=== PATIENT | male | born 1960 | race Caucasian/White ===

== ENCOUNTER 2022-12-10 11:35 | Emergency (ER) | payer BC ==
[~2022-12-10] VITALS: Ht 172.7 cm; Wt 65.8 kg
[2022-12-10] MEDS ORDERED: NEOM10DR11 LEFT EAR (11:59)
[2022-12-10] MEDS ORDERED: SULF1TAB48 PO (11:59)
--- NOTE | 2022-12-10 12:04 | NUR ---
PT WAS EVALUATED BY DR ENRIQUZE. PT WAS D/C'd TO HOME. D/C INSTRUCTIONS GIVEN TO THE PT BY DR ENRIQUEZ.
[2022-12-10 12:05] VITALS: BP 135/78
== END 2022-12-10 12:06 | disposition home or self-care (01) ==
LOC: ER 11:35
DX: H60.92 Unspecified otitis externa, left ear (principal); L03.012 Cellulitis of left finger; F17.200 Nicotine dependence, unspecified, uncomplicated
CPT/HCPCS: A4663

== ENCOUNTER 2022-12-12 10:19 | Emergency (ER) | payer BC ==
[~2022-12-12] VITALS: Ht 172.7 cm; Wt 65.8 kg
[~2022-12-12 10:19] MED LIST: NEOM10DR11 LEFT EAR; SULF1TAB48 PO
[2022-12-12] MEDS ORDERED: CLIN300C12 PO (10:38)
[2022-12-12] MEDS ORDERED: CLINDAMYCIN HCL 300 MG CAPSULE ONE (10:41)
[2022-12-12] MEDS ORDERED: CLINDAMYCIN HCL 150 MG CAPSULE PO ONE (10:45)
--- NOTE | 2022-12-12 11:21 | NUR ---
PT WAS EVALUATED BY DR MENDOZA. PT WAS D/C'd TO HOME. D/C INSTRUCTIONS GIVEN TO THE PT BY DR MENDOZA.
[2022-12-12 11:23] VITALS: BP 136/81
== END 2022-12-12 11:24 | disposition home or self-care (01) ==
LOC: ER 10:19
DX: L03.012 Cellulitis of left finger (principal); F17.200 Nicotine dependence, unspecified, uncomplicated; H60.92 Unspecified otitis externa, left ear
CPT/HCPCS: A4663

== ENCOUNTER 2024-05-16 06:56 | Emergency (ER) | payer BC ==
[~2024-05-16] VITALS: Ht 170.2 cm; Wt 63.5 kg
[~2024-05-16 06:56] MED LIST changes: +CLIN300C12 PO
[2024-05-16 07:47] LABS: BASOPHILS # (AUTO) 0.1 K/UL (0.0-0.2); BASOPHILS % (AUTO) 0.8 % (0.0-2.0); EOSINOPHILS # (AUTO) 0.1 K/uL (0.0-0.7); HEMATOCRIT 42.9 % (36.7-47.1); HEMOGLOBIN 14.6 g/dL (12.5-16.3); LYMPHOCYTES # (AUTO) 1.4 K/uL (0.8-4.8); LYMPHOCYTES % (AUTO) 17.8 % (20.5-51.5); MEAN CORPUSCULAR HGB CONC 34 g/dL (32.5-36.3); MEAN CORPUSCULAR VOLUME 93.8 fL (73.0-96.2); MONOCYTES # (AUTO) 0.5 K/uL (0.1-1.30); NEUTROPHILS % (AUTO) 74.4 % (38.5-71.5); PLATELET COUNT (AUTO) 239 K/uL (152-348); RED BLOOD CELL COUNT(AUTO) 4.57 MIL/uL (4.06-5.63); RED CELL DISTRIBUTION WIDTH 13.1 % (12.1-16.2)
[2024-05-16 07:51] LABS: DIFFERENTIAL COMMENT 1
[2024-05-16 07:54] LABS: CALCIUM 9.1 mg/dL (8.5-10.1); CARBON DIOXIDE 31 mmol/L (21-32); CHLORIDE 102 mmol/L (98-107); CREATININE 0.9 mg/dL (0.6-1.3); GLUCOSE 105 mg/dL (74-106); POTASSIUM 4.7 mmol/L (3.5-5.1); SODIUM SERUM 139 mmol/L (136-145); UREA NITROGEN, BLOOD 11 mg/dL (7-18)
[2024-05-16 09:19] VITALS: BP 151/78; O2SAT 98
== END 2024-05-16 09:20 | disposition home or self-care (01) ==
LOC: ER 07:01
DX: R00.2 Palpitations (principal); E78.5 Hyperlipidemia, unspecified; F17.200 Nicotine dependence, unspecified, uncomplicated; Z79.899 Other long term (current) drug therapy
CPT/HCPCS: 36415; 71045; 84484; 85025; 93005; A4606; A4663